=== PATIENT | female | born 2000 | race Hispanic/Latino ===

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

== ENCOUNTER 2018-01-02 12:57 | Emergency (ER) | payer OTHER ==
[2018-01-02] MEDS ORDERED: diphenhydrAMINE 25 MG CAP ONE (13:32)
== END 2018-01-02 13:45 | disposition home or self-care (01) ==
LOC: NAV ERS 12:57
DX: L25.9 Unspecified contact dermatitis, unspecified cause (principal); F17.290 Nicotine dependence, other tobacco product, uncomplicated; F31.9 Bipolar disorder, unspecified; Z79.899 Other long term (current) drug therapy
CPT/HCPCS: 99282

== ENCOUNTER 2018-05-08 17:51 | Emergency (ER) | payer OTHER ==
[2018-05-08] MEDS ORDERED: Ibuprofen 800 MG TAB ONE (18:11)
== END 2018-05-08 18:15 | disposition home or self-care (01) ==
LOC: NAV ERS 17:51
DX: M77.9 Enthesopathy, unspecified (principal); F31.9 Bipolar disorder, unspecified; F17.210 Nicotine dependence, cigarettes, uncomplicated; Z79.899 Other long term (current) drug therapy
CPT/HCPCS: 99283